=== PATIENT | female | born 1995 | race African-American/Black ===

== ENCOUNTER 2016-07-18 12:07 | Emergency (ER) | payer SELFPAY ==
[~2016-07-18] VITALS: Ht 154.9 cm; Wt 65.0 kg
[2016-07-18 12:09] VITALS: BP 135/79; PULSE 84; RESP 16; TEMP 98.2; O2SAT 99
[2016-07-18] MEDS ORDERED: LORA10TA PO (13:15)
[2016-07-18] MEDS ORDERED: PRED-503 PO (13:15)
--- NOTE | 2016-07-18 13:15 | PD ---
HPI Chief Complaint: Allergic/Adverse Reaction Time Seen by Provider: 12:32 Travel History International Travel<30 days: No Contact w/Intl Traveler<30days: No Traveled to known affect area: No History of Present Illness HPI The 21 year-old woman who presents to the ED complaining of some swelling to her lips. It was worse yesterday and improved. She's never had it before. She otherwise has been feeling well and healthy. She denies history of previous atopy except for a little bit of childhood asthma. History Past Medical History Medical History: Denies Significant Hx Social History Alcohol Use: Yes (rare) Tobacco Use: No Allergies-Medications (Allergen,Severity, Reaction): Coded Allergies: No Known Allergies (Unverified , 07/15/15) Reported Meds & Prescriptions Reported Meds & Active Scripts Active Loratadine 10 Mg Tab 10 Mg PO DAILY 5 Days Deltasone (Prednisone) 20 Mg Tab 20 Mg PO BID 3 Days Review of Systems Except as stated in HPI: all other systems reviewed are Neg Physical Exam Narrative Gen.: Well-appearing 21 year-old woman HEENT: I can't really appreciate any visible swelling. Says her upper lip is low but swelling. Is no asymmetry. Is no tongue edema or throat swelling. Data Data Last Documented VS Vital Signs Date Time Temp Pulse Resp B/P Pulse Ox O2 Delivery O2 Flow Rate FiO2 07/18/16 13:17 07/18/16 12:28 99 Room Air 07/18/16 12:09 98.2 84 16 MDM Medical Decision Making Medical Screen Exam Complete: Yes Emergency Medical Condition: Yes Differential Diagnosis Angioedema, allergic reaction, other Narrative Course Medical decision-making new para this 21 year-old woman presents emergency department with reported lip swelling. She also she has some scratches her throat. She looks fine. I can appreciate any abnormality on exam. Recommend supportive treatment, steroids, antihistamines. Diagnosis Primary Impression: Allergic reaction Additional Instructions: Take prednisone as prescribed. Take loratadine as prescribed per Return emergent arm for any worsening trouble swallowing, trouble breathing, or any other new or worsening symptoms. Follow-up with her primary doctor for not completely well in 7-10 days. Med/Other Pt SpecificInfo: Prescription(s) given Scripts Loratadine 10 Mg Tab10 Mg PO DAILY 5 Days Ref 0 Prov:Silver Zacarias MD 07/18/16 Prednisone (Deltasone)20 Mg Tab20 Mg PO BID 3 Days Prov:Silver Zacarias MD 07/18/16 Disposition: 01 DISCHARGE HOME Condition: Stable Silver Zacarias MD July 18, 2016 13:15
== END 2016-07-18 14:40 | disposition home or self-care (01) ==
LOC: NEPD 12:07
DX: T78.40XA Allergy, unspecified, initial encounter (principal)
CPT/HCPCS: 99283